=== PATIENT | male | born 1970 | race Caucasian/White ===

== ENCOUNTER 2019-06-03 10:02 | Emergency (ER) | payer BC, OTHER ==
[2019-06-03 10:09] VITALS: BP 132/89
--- NOTE | 2019-06-03 10:59 | UC ---
Throat Pain/Nasal Jered HPI - HPI Summary HPI Summary: 48-year-old male whose had cold symptoms for greater than 1 week with head congestion and no sinus pressure. 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 - History of Current Complaint Chief Complaint: UCGeneralIllness Stated Complaint: SINUS AND CHEST CONGESTION Time Seen by Provider: 06/03/19 10:48 Hx Obtained From: Patient Onset/Duration: Gradual Onset Severity: Mild Pain Intensity: 0 Cough: Nonproductive Associated Signs & Symptoms: Positive: Sinus Discomfort, Nasal Discharge - Allergies/Home Medications Allergies/Adverse Reactions: Allergies Allergy/AdvReac Type Severity Reaction Status Date / Time No Known Allergies Allergy Verified 06/03/19 10:09 PMH/Surg Hx/FS Hx/Imm Hx Previously Healthy: Yes - Surgical History Surgical History: None - Family History Known Family History: Positive: Non-Contributory - Social History Alcohol Use: None Substance Use Type: None Smoking Status (MU): Never Smoked Tobacco Review of Systems All Other Systems Reviewed And Are Negative: Yes ENT: Positive: Nasal Discharge, Sinus Congestion, Sinus Pain/Tenderness Is Patient Immunocompromised?: No Physical Exam Triage Information Reviewed: Yes Appearance: Well-Appearing, No Pain Distress, Well-Nourished Vital Signs: Initial Vital Signs Temp 98.5 F 06/03/19 10:06 Pulse 75 06/03/19 10:06 Resp 18 06/03/19 10:06 BP 132/89 06/03/19 10:06 Pulse Ox 98 06/03/19 10:06 Vital Signs Reviewed: Yes Eyes: Positive: Conjunctiva Clear ENT: Positive: Pharynx normal - Yellow purulent postnasal drainage., Nasal congestion - Turbinates are inflamed., Nasal drainage - Yellow purulent nasal coryza., TMs normal, Sinus tenderness - Frontal sinus tenderness on palpation., Uvula midline Neck: Positive: Supple, Nontender, No Lymphadenopathy Respiratory: Positive: Lungs clear, Normal breath sounds, No respiratory distress, No accessory muscle use, Other: - Lungs are clear to auscultation with good air movement however he does have a harsh cough. Cardiovascular: Positive: RRR, No Murmur, Pulses Normal, Brisk Capillary Refill Musculoskeletal Exam: Normal Neurological Exam: Normal Psychological Exam: Normal Skin Exam: Normal Throat Pain/Nasal Course/Dx - Course Course Of Treatment: Patient is comfortable here. I'm going to treat him with Augmentin 875 mg by mouth twice a day 10 days. Increase fluids, [id number] cold medications as directed. - Differential Dx/Diagnosis Provider Diagnosis: Sinusitis Discharge ED - Sign-Out/Discharge Documenting (check all that apply): Patient Departure All imaging exams completed and their final reports reviewed: No Studies - Discharge Plan Condition: Good Disposition: HOME Prescriptions: Amoxicillin/Clavulanate TAB* [Augmentin TAB 875*] 875 mg PO BID 10 Days #20 tab Patient Education Materials: Sinusitis (ED) Referrals: Sudhakar Vasques MD [Primary Care Provider] - Additional Instructions: Increase fluids, [id number] cold and congestion medication as directed. Take the Augmentin with food. Follow-up with your primary care provider in approximately 5-7 days if no improvement. - Billing Disposition and Condition Condition: GOOD Disposition: Home
== END 2019-06-03 11:03 | disposition home or self-care (01) ==
LOC: UCEAST 10:02
DX: J32.9 Chronic sinusitis, unspecified (principal)
CPT/HCPCS: 99212; G0463

== ENCOUNTER 2019-08-11 09:46 | Emergency (ER) | payer BC ==
[2019-08-11 10:19] VITALS: BP 127/83
--- NOTE | 2019-08-11 10:41 | UC ---
Respiratory Complaint HPI - HPI Summary HPI Summary: 49 y/o male presents to the urgent care c/o productive barking cough w/ yellowish phlegm for the past 2 weeks. Pt reports symptoms started w/ a common cold, then he developed low grade fever, chills and body aches, then a dry cough. Cough has worsen and he has not been able to sleep well at night despite taking OTC medication. For the past 2 days he has had fevers and chills, sore throat w/ decrease appetite. Pt denies SOB, wheezing, dizziness, chest pain, abdominal pain, N/V/D. - History of Current Complaint Chief Complaint: UCGeneralIllness Stated Complaint: FEVER,COUGH Time Seen by Provider: 08/11/19 10:40 Hx Obtained From: Patient Onset/Duration: Gradual Onset, Lasting Weeks - 2 weeks, Worse Since - 2 days w/ fever, chills and sore throat Timing: Constant Severity Initially: Mild Severity Currently: Mild Pain Intensity: 4 - sore throat Pain Scale Used: 0-10 Numeric Character: Cough: Productive, Sputum Description: - yellowish Aggravating Factors: Recumbent Position Alleviating Factors: OTC Meds Associated Signs And Symptoms: Positive: Fever, Chills, URI, Nasal Congestion. Negative: Dyspnea, Wheezing - Risk Factors Pulmonary Embolism Risk Factors: Negative Cardiac Risk Factors: Negative Pseudomonas Risk Factors: Negative Tuberculosis Risk Factors: Negative - Allergies/Home Medications Allergies/Adverse Reactions: Allergies Allergy/AdvReac Type Severity Reaction Status Date / Time No Known Allergies Allergy Verified 08/11/19 10:12 Home Medications: Home Medications Ibuprofen TAB* [Motrin TAB* 400 MG] 400 mg PO Q6H PRN 08/11/19 [History Confirmed 08/11/19] Latanoprost/Pf [Latanoprost 0.005% Eye Drop] 7.5 ml OP DAILY 08/11/19 [History Confirmed 08/11/19] PMH/Surg Hx/FS Hx/Imm Hx Previously Healthy: Yes - Pt denies PMHX - Surgical History Surgical History: None - Family History Known Family History: Positive: Cardiac Disease, Hypertension - Social History Occupation: Employed Part-time Lives: With Family Alcohol Use: None Substance Use Type: None Smoking Status (MU): Never Smoked Tobacco Review of Systems All Other Systems Reviewed And Are Negative: Yes Constitutional: Positive: Fever, Chills Skin: Positive: Negative Eyes: Positive: Negative ENT: Positive: Sore Throat, Nasal Discharge - yellowish, Sinus Congestion, Sinus Pain/Tenderness, Other - moderate PND Respiratory: Positive: Cough - productive cough w/ yellowish sputum Cardiovascular: Positive: Negative Gastrointestinal: Positive: Negative Genitourinary: Positive: Negative Motor: Positive: Negative Neurovascular: Positive: Negative Musculoskeletal: Positive: Myalgia Neurological: Positive: Headache Psychological: Positive: Negative Is Patient Immunocompromised?: No Physical Exam - Summary Physical Exam Summary: Vital Signs Reviewed: Yes General: well developed, well nourished male sitting in the examining table w/o any apparent distress Eyes: Positive: Conjunctiva Clear - PERRLA, EOMI, fundi grossly normal ENT: Positive: Normal ENT inspection, Hearing grossly normal, Pharynx normal, Nasal congestion - edematous and erythematous nasal mucosa, Nasal drainage - yellowish drainage, TMs normal. Negative: Tonsillar swelling, Tonsillar exudate Neck: Positive: Supple, Nontender, No Lymphadenopathy Respiratory: no orthopnea or dyspnea. Able to speak in full sentences, no retractions or accessory muscle use, no tripod position, stridor, or head bobbing. Positive breath sounds bilaterally. diffuse scattered rhonchi and midl crackles, on b/L lungs, no wheezing or rales. Cardiovascular: Positive: RRR, No Murmur, Pulses Normal, Brisk Capillary Refill Abdomen Description: Positive: Nontender, No Organomegaly, Soft. Negative: CVA Tenderness (R), CVA Tenderness (L) Bowel Sounds: Positive: Present Musculoskeletal Exam: Normal Musculoskeletal: Positive: Strength Intact, ROM Intact, No Edema Neurological Exam: Normal Psychological Exam: Normal Skin Exam: Normal Triage Information Reviewed: Yes Vital Signs: Initial Vital Signs Temp 98.7 F 08/11/19 10:14 Pulse 73 08/11/19 10:14 Resp 16 08/11/19 10:14 BP 127/83 08/11/19 10:14 Pulse Ox 99 08/11/19 10:14 Respiratory Course/Dx - Course Course Of Treatment: 49 y/o male presents to the urgent care c/o productive barking cough w/ yellowish phlegm for the past 2 weeks. Pt reports symptoms started w/ a common cold, then he developed low grade fever, chills and body aches, then a dry cough. Cough has worsen and he has not been able to sleep well at night despite taking OTC medication. For the past 2 days he has had fevers and chills, sore throat w/ decrease appetite. Pt denies SOB, wheezing, dizziness, chest pain, abdominal pain, N/V/D. Hx obtained. Hx obtained. Pt w/ B/L lungs scattered rhonchi and mild crackles, no wheezing or rales on examination. O2Sat:99%. Influenza A&B: negative. Strep: negative. Chest X-ray ordered: impression: no acute disease observed. Pt w/ acute bronchitis and symptoms worsen for the past 2 weeks. Pt Rx Doxycycline PO , and Tessalon PO to alleviate symptoms Strongly advised to f/u with his PCP for further management. Pt understood and agreed with D/C instructions and left the clinic hemodynamically stable. - Differential Dx/Diagnosis Differential Diagnosis/HQI/PQRI: Asthma, Bronchitis, Exacerbation Of COPD, Influenza, Laryngitis, Lower Resp Infection, Sinusitis Provider Diagnosis: Acute bronchitis, Cough Discharge ED - Sign-Out/Discharge Documenting (check all that apply): Patient Departure - D/C home All imaging exams completed and their final reports reviewed: Yes - Discharge Plan Condition: Stable Disposition: HOME Prescriptions: Benzonatate CAP* [Tessalon 100 MG CAP*] 100 mg PO TID PRN #21 cap PRN Reason: Cough DOXYcycline CAP(*) [DOXYcycline 100MG CAP(*)] 100 mg PO BID #20 cap Patient Education Materials: Acute Bronchitis (ED) Forms: *Work Release Referrals: Sudhakar Vasques MD [Primary Care Provider] - 3 Days Additional Instructions: 1-Please take full course of antibiotic to avoid resistance. 2-Take Tessalon PO tabs as directed to alleviate cough. Increase fluid intake , rest and eat well. 3- If symptoms do not improve or worsen or your develop SOB with fever and severe wheezing please go immediately to the ER further evaluation and treatment. 4- F/u with your PCP in 2-3 days for further management if not improvement of symptoms - Billing Disposition and Condition Condition: STABLE Disposition: Home
[2019-08-11 11:14] LABS: Influenza A Molecular Negative (Negative); Influenza B Molecular Negative (Negative)
== END 2019-08-11 11:45 | disposition home or self-care (01) ==
LOC: UCEAST 09:46
DX: R05 Cough (principal); J20.9 Acute bronchitis, unspecified; R09.89 Other specified symptoms and signs involving the circulatory and respiratory systems; J02.9 Acute pharyngitis, unspecified; R51 Headache; M79.10 Myalgia, unspecified site; R68.83 Chills (without fever)
CPT/HCPCS: 71046; 87651; 99212; G0463